=== PATIENT | male | born 1980 | race Two or more races ===

== ENCOUNTER 2017-01-30 12:17 | Emergency (ER) | payer MEDICAID ==
--- NOTE | 2017-01-30 12:45 | ED Physician Chart ---
Chief Complaint/HPI - Patient Information Date Seen:: 01/30/17 Time Seen:: 12:30 Chief Complaint:: right ear pain History of Present Illness:: THIS IS A 37 YO MALE WITH ON AND OFF RIGHT EAR PAIN. HE DENIES FEVER, COUGH AND CHEST CONGESTION. HE STATES THAT HE HAS NO DIFFICULTY HEARING. HE DENIES ALL OTHER PROBLEM. Historian:: Patient Review:: Nurse's Note Reviewed Review of Systems - Review of Systems General/Constitutional: No fever, No chills, No weight loss, No weakness, No diaphoresis, No edema, No loss of appetite Skin: No skin lesions, No rash, No bruising Head: No headache, No light-headedness Eyes: No loss of vision, No pain, No diplopia ENT: Earache, No nasal drainage, No sore throat, No tinnitus Neck: No neck pain, No swelling, No thyromegaly, No stiffness, No mass noted Cardio Vascular: No chest pain, No palpitations, No PND, No orthopnea, No edema Pulmonary: No SOB, No cough, No sputum, No wheezing GI: No nausea, No vomiting, No diarrhea, No pain, No melena, No hematochezia, No constipation, No hematemesis G/U: No dysuria, No frequency, No hematuria Musculoskeletal: No bone or joint pain, No back pain, No muscle pain Endocrine: No polyuria, No polydipsia Psychiatric: No prior psych history, No depression, No anxiety, No suicidal ideation Hematopoietic: No bruising, No lymphadenopathy Allergic/Immuno: No urticaria, No angioedema Neurological: No syncope, No focal symptoms, No weakness, No paresthesia, No headache, No seizure, No dizziness, No confusion, No vertigo Past Medical History - Past Medical History Obtainable: Yes Past Medical History: No significant medical hx Family History: None Social History: Non Smoker, No Alcohol, No Drug Use Surgical History: None Psychiatricy History: None Medication: None Physical Exam - Physical Examination General/Constitutional: Awake, Well-developed, well-nourished, Alert, No distress, GCS 15, Non-toxic appearing, Ambulatory Head: Atraumatic Eyes: Lids, conjuctiva normal, PERRL, EOMI Skin: Nl inspection, No rash, No skin lesions, No ecchymosis, Well hydrated, No lymphadenopathy ENMT: Nasal exam nl, Lips, teeth, gums nl Other ENMT comments:: THERE IS A RED, TENDER AND SWOLLEN AREA OF THE RIGHT OUTER EAR. THE CANAL LOOKS NORMAL WITH A SMALL AMOUNT OF FLUID NOTE BEHIND THE TM. Neck: Nontender, Full ROM w/o pain, No JVD, No nuchal rigidity, No bruit, No mass, No stridor Respiratory: Nl effort/Exclusion, Clear to Auscultation, No Wheeze/Rhonchi/Rales Cardio Vascular: RRR, No murmur, gallop, rubs, NL S1 S2 GI: No tenderness/rebounding/guarding, No organomegaly, No hernia, Normal BS's, Nondistended, No mass/bruits, No McBurney tenderness : No CVA tenderness Extremities: No tenderness or effusion, Full ROM, normal strength in all extremities, No edema, Normal digits & nails Neuro/Psych: Alert/oriented, DTR's symmetric, Normal sensory exam, Normal motor strength, Judgement/insight normal, Mood normal, Normal gait, No focal deficits Misc: normal gait, Normal back, No paraspinal tenderness ED Septic Shock - . Is Septic Shock (SBP<90, OR Lactate>4 mmol\L) present?: No Reassessment (Disposition) - Reassessment Reassessment Condition:: Unchanged - Diagnosis Diagnosis:: RIGHT OTITIS EXTERNA SEROUS OTITIS - Aftercare/Follow up Instructions Aftercare/Follow-Up Instructions:: Counseled pt regarding lab results/diagnosis & need follow up, Refer to Discharge Instructions, Counseled pt & family regarding lab results/diagnosis & need follow up - Patient Disposition Discharge/Transfer:: Home Condition at Disposition:: Unchanged ED Discharge Plan - Patient Disposition Admit/Discharge/Transfer: PT DISCHARGED HOME Condition at Disposition: Unchanged
== END 2017-01-30 13:06 | disposition home or self-care (01) ==
LOC: ER 12:17
DX: H60.91 Unspecified otitis externa, right ear (principal)
CPT/HCPCS: Z7502

== ENCOUNTER 2017-12-18 11:02 | Emergency (ER) | payer MEDICAID ==
--- NOTE | 2017-12-18 15:50 | ER Physician Documentation ---
DATE OF SERVICE: 12/18/2017 CHIEF COMPLAINT: He came to the Emergency Room with a complaint of burning in the left eye, redness in the left eye, and slight tingling. Otherwise, no significant complaints. This is the first time he has this complaint. HISTORY OF PRESENT ILLNESS: He got [place] medication with dexamethasone along with neomycin. He used that without much improvement. He used it only once. He came here. He never had any conjunctivitis or stye or any other infection. He does not have any other medical problems. REVIEW OF SYSTEMS: Essentially benign and negative. EYES: No history of previous conjunctivitis, stye, foreign body, itching or any bites or sting, etc. PULMONARY: No history of pneumonia, TB, pulmonary embolism, COPD, emphysema, bronchitis. CARDIAC: No history of chest pain, myocardial infarction, rheumatic fever, valvular heart disease, pericardial disease. ENDOCRINE: No history of diabetes mellitus, hypo or hyperthyroidism. BONES AND JOINTS: No apparent complaints. GASTROINTESTINAL: No history of any diarrhea or constipation, vomiting. PAST SURGICAL HISTORY: Negative. FAMILY HISTORY: Otherwise benign and negative. PERSONAL HISTORY: Benign and negative. He does not smoke, does not drink. 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 No illicit drug abuse, etc. PHYSICAL EXAMINATION: VITAL SIGNS: On examination, the vital signs shows temperature 97.3, pulse of 64, respirations 18, blood pressure 134/103. CHEST: The trachea to be central. Fairly good air entry in both lungs without any rales, rhonchi, or bronchial breathing. GENERAL: Benign and negative. No meningeal signs are seen. EYES, EARS, NOSE, THROAT: The right eye appears to be normal. The left eye shows evidence of redness and evidence of conjunctivitis with itching. No evidence of any stye. EXTREMITIES: No edema over the legs. No cyanosis, no petechia. No ecchymosis. Peripheral pulses are normal. CHEST: Clear. No rales, rhonchi, or bronchial breathing. HEART: Reveals normal heart sounds. Soft fourth heart sound. Second heart sound is physiologically split. Third heart sound is absent. ABDOMEN: Soft, benign and negative. CENTRAL NERVOUS SYSTEM: Normal. CLINICAL IMPRESSION: The patient has conjunctivitis in the left eye. The patient is given Cipro eyedrops to be taken at home, and hopefully this should take care of it. The nurse will give the drops, and then the patient once stable will be able to go home. JOB# [id number]
== END 2017-12-18 12:23 | disposition home or self-care (01) ==
LOC: ER 11:02
DX: H10.32 Unspecified acute conjunctivitis, left eye (principal)
CPT/HCPCS: 99283; Z7610; Z7502